=== PATIENT | female | born 1930 | race Caucasian/White ===

== ENCOUNTER 2016-06-03 07:25 | Emergency (ER) | payer OTHER, BC ==
[~2016-06-03] VITALS: Ht 170.2 cm; Wt 57.0 kg
[~2016-06-03 07:25] MED LIST: COEN1CAP46 PO; CPR250 PO; DORZ2SOL OPB; LPT10 PO; MULT-506 PO; NIAC1TAB59 PO; POLY99.02 OP; PRT40 PO
[2016-06-03 07:31] VITALS: TEMP 36.6; Ht 170.2 cm; Wt 57.0 kg
[2016-06-03] MEDS ORDERED: SODIUM CHLORIDE 0.9% 1000ML 500 ML IV STA (07:43)
[2016-06-03] MEDS ORDERED: DIPHTHERIA/TETANUS/PERTUSSIS 0.5 ML SYR/VIAL IM. ONE (07:45)
[2016-06-03] MEDS ORDERED: LIDO/EPINEPHRINE/SOD BICARB 20 ML VIAL INFIL ONE (07:45)
[2016-06-03] MEDS ORDERED: LISI-729 PO (07:49)
[2016-06-03] MEDS ORDERED: CITA10TA8 PO (07:49)
[2016-06-03] MEDS ORDERED: COEN1CAP37 PO (07:49)
[2016-06-03] MEDS ORDERED: ATOR10TA88 PO (07:49)
[2016-06-03] MEDS ORDERED: TRAV0.00 OPB (07:49)
[2016-06-03] MEDS ORDERED: POLY1DRO19 OPB (07:49)
[2016-06-03] MEDS ORDERED: MULT-513 PO (07:49)
[2016-06-03] MEDS ORDERED: PRLSR20 PO (07:49)
[2016-06-03] MEDS ORDERED: AMOX500C3 PO (07:49)
[2016-06-03] MEDS ORDERED: ACET325T96 PO (07:49)
[2016-06-03] MEDS ORDERED: MEMA1CAP7 PO (07:49)
--- NOTE | 2016-06-03 07:49 | EMERGENCY ROOM VISIT NOTE ---
History Report prepared by Tera: Maddie Andujar Under the Supervision of: Dr. Matt Musa M.D. First contact with patient: 07:33 Chief Complaint: FALL Stated Complaint: FALL/LACERATION History of Present Illness The patient is an 86 year old female who presents to the Emergency Room with complaints of a sudden fall that occurred prior to arrival. She states that she is in minimal discomfort. The patient states that this morning she turned, lost her balance, and then fell hitting her head causing a small laceration to her head. She denies any loss of consciousness or headache. The patient states that she did feel dizzy this morning and states that she intermittently becomes dizzy. She states that last weekend she felt nauseous, but denies any nausea this morning. The patient states that she thought there was a lump to the back of her neck since the fall, but states that she does not notice it now. Per the patient's son, the patient has recently been treated for vertigo. Tetanus status is unknown. Source of History: patient Onset: prior to arrival Position: other (global) Symptom Intensity: minimal Quality: other (fall) Timing: other (sudden) Associated Symptoms: No LOC, No headache, No nausea Note: Associated Symptoms: dizzy Review of Systems See HPI for pertinent positives & negatives. A total of 10 systems reviewed and were otherwise negative. Past Medical & Surgical Medical Problems: (1) Afib (2) Chronic osteoarthritis (3) GI bleed (4) Replacement of total knee joint Surgical Problems: (1) History of heart valve replacement Family History Patient reports no known family medical history. Social History Smoking Status: Never Smoker Alcohol Use: none Marital Status: Housing Status: lives alone Occupation Status: retired Current/Historical Medications Scheduled Atorvastatin (Lipitor), 10 MG PO Q2D Citalopram Hydrobromide (Celexa), 10 MG PO HS Coenzyme Q10 (Ubidecarenone) (Co Q-10), 200 MG PO DAILY Lisinopril (Zestril), 5 MG PO DAILY Memantine Hcl (Namenda Xr), 28 MG PO HS Multivitamins/Minerals (Mvi With Minerals), 1 TAB PO DAILY Omeprazole (Prilosec), 20 MG PO DAILY Travoprost (Travatan Z), 1 DROPS OPB HS Scheduled PRN Acetaminophen Tab (Tylenol), 650 MG PO Q4 PRN for PA Amoxicillin (Amoxil), 4 CAP PO Q24H PRN for DENTAL PROPHYLAXIS Polyethylene Glycol-Propylene (Lubricant Eye Drops), 1 DROP OPB Q1H PRN for DRY EYES Allergies Coded Allergies: Celecoxib (Verified Allergy, Severe, SWELLING LIPS, 06/03/16) Amoxicillin (Unverified Allergy, Intermediate, ., 06/03/16) Clavulanic Acid (Unverified Allergy, Intermediate, ., 06/03/16) Fexofenadine (Verified Allergy, Intermediate, STIFF TONGUE, 06/03/16) Valdecoxib (Verified Allergy, Mild, RASH, 06/03/16) Physical Exam Vital Signs Date Time Temp Pulse Resp B/P Pulse Ox O2 Delivery O2 Flow Rate FiO2 06/03/16 09:21 74 16 170/100 97 06/03/16 08:12 72 16 175/85 94 Room Air 06/03/16 07:31 36.6 82 16 181/92 95 Room Air 06/03/16 07:28 77 Physical Exam GENERAL: Patient is in no acute distress. HEENT: 1 cm vertical posterior scalp laceration with no active bleeding. No jaye stepoff, no hematoma. No facial trauma. Mucous membranes slightly dry. NECK: No posterior c-spine tenderness. No stridor, no adenopathy, no meningismus, trachea is midline. LUNGS: Decreased breath sounds, breath sounds are equal, no wheezes or rhonchi. HEART: 2/6 systolic murmur with a regular rate and rhythm. ABDOMEN: Soft, nontender, bowel sounds positive, no hernias, no peritonitis. BACK: Nontender thoracic and lumbar spine. EXTREMITIES: No cyanosis or edema, full range of motion of all the joints without pain or difficulty, no signs for acute trauma. NEUROLOGIC: Oriented x 3, no acute motor or sensory deficits, no focal weakness. SKIN: No rash, no jaundice, no diaphoresis. Medical Decision & Procedures ER Provider Diagnostic Interpretation: X ray results and stated below per my interpretation and radiologist interpretation. Other radiology results and stated below per my review and radiologist interpretation: HEAD CT NONCONTRAST CT DOSE: HISTORY: Fall. Head laceration. EVALUATE ALTERED MENTAL STATUS/WEAKNESS TECHNIQUE: Multiaxial CT images of the head were performed without the use of intravenous contrast. Automated exposure control was utilized for this study. Comparison: Head CT 01/23/2015. Findings: The paranasal sinuses and mastoid air cells are clear. There is a stable 14 mm extra-axial calcified mass along the right side of the foramen magnum. This likely represents a meningioma. There is no hematoma, midline shift, acute infarct. Atrophy and microvascular ischemic changes are again noted. This remains unchanged. Impression: No significant change compared to the prior study. No acute intracranial abnormality. Electronically signed by: Donaldo Leonard M.D. 06/03/2016 8:15 AM Dictated Date/Time: 06/03/2016 8:10 AM CHEST ONE VIEW PORTABLE HISTORY: EVALUATE ALTERED MENTAL STATUS/WEAKNESS COMPARISON: None. FINDINGS: Levoscoliosis of the lumbar spine. The heart remains enlarged. Retrocardiac density is consistent with a hiatus hernia. No pneumothorax. No pleural effusions. Mild interstitial thickening which appears to be chronic. Bibasilar linear densities consistent with subsegmental atelectasis. No new focal lung consolidations. Severe degenerative changes within the bilateral glenohumeral joints. There are poststernotomy changes. IMPRESSION: No significant change compared to the prior study. No acute process. Electronically signed by: Donaldo Leonard M.D. 06/03/2016 8:25 AM Dictated Date/Time: 06/03/2016 8:[address] DOSE: 1022.84 mGy.cm HISTORY: Neck pain. fall TECHNIQUE: Multiaxial CT images of the cervical spine were performed and reformatted in the sagittal and coronal plane without the use of contrast. COMPARISON: None. FINDINGS: Slight depression involving the superior endplate of T1 which is new from the prior study. However, this demonstrates slight sclerosis. There is no paravertebral soft tissue edema. Therefore, this is consistent with an old mild compression deformity. This demonstrates less than 10% loss of height. No acute fracture or subluxation within the cervical spine. Severe disc space narrowing at C5-C6, C6-C7, and C7-T1 with associated endplate osteophytes. The C1-C2 interval and prevertebral soft tissues are intact. The lung apices are clear. IMPRESSION: 1. No acute fracture or subluxation within the cervical spine. 2. Mild superior endplate compression deformity at T1 which is likely old. Electronically signed by: Doanldo Leonard M.D. 06/03/2016 8:23 AM Dictated Date/Time: 06/03/2016 8:16 AM Laboratory Results 06/03/16 07:35 Red Blood Count 4.16, Mean Corpuscular Volume 100.2, Mean Corpuscular Hemoglobin 33.4, Mean Corpuscular Hemoglobin Concent 33.3, Mean Platelet Volume 10.0, Neutrophils (%) (Auto) 56.8, Lymphocytes (%) (Auto) 29.5, Monocytes (%) ( Auto) 7.8, Eosinophils (%) (Auto) 5.1, Basophils (%) (Auto) 0.4, Neutrophils # ( Auto) 3.93, Lymphocytes # (Auto) 2.04, Monocytes # (Auto) 0.54, Eosinophils # ( Auto) 0.35, Basophils # (Auto) 0.03 06/03/16 07:35 Test 06/03/16 07:35 White Blood Count 6.92 K/uL (4.8-10.8) Red Blood Count 4.16 M/uL (4.2-5.4) Hemoglobin 13.9 g/dL (12.0-16.0) Hematocrit 41.7 % (37-47) Mean Corpuscular Volume 100.2 fL (80-100) Mean Corpuscular Hemoglobin 33.4 pg (25-34) Mean Corpuscular Hemoglobin Concent 33.3 g/dl (32-36) Platelet Count 158 K/uL (130-400) Mean Platelet Volume 10.0 fL (7.4-10.4) Neutrophils (%) (Auto) 56.8 % Lymphocytes (%) (Auto) 29.5 % Monocytes (%) (Auto) 7.8 % Eosinophils (%) (Auto) 5.1 % Basophils (%) (Auto) 0.4 % Neutrophils # (Auto) 3.93 K/uL (1.4-6.5) Lymphocytes # (Auto) 2.04 K/uL (1.2-3.4) Monocytes # (Auto) 0.54 K/uL (0.11-0.59) Eosinophils # (Auto) 0.35 K/uL (0-0.5) Basophils # (Auto) 0.03 K/uL (0-0.2) RDW Standard Deviation 48.4 fL (36.4-46.3) RDW Coefficient of Variation 13.2 % (11.5-14.5) Immature Granulocyte % (Auto) 0.4 % Immature Granulocyte # (Auto) 0.03 K/uL (0.00-0.02) Anion Gap 4.0 mmol/L (3-11) Est Creatinine Clear Calc Drug Dose 47.4 ml/min Estimated GFR () 80.3 Estimated GFR (Non- 69.3 BUN/Creatinine Ratio 14.7 (10-20) Calcium Level 9.2 mg/dl (8.5-10.1) Total Bilirubin 0.7 mg/dl (0.2-1) Aspartate Amino Transf (AST/SGOT) 33 U/L (15-37) Alanine Aminotransferase (ALT/SGPT) 29 U/L (12-78) Alkaline Phosphatase 104 U/L (45-117) Total Protein 6.8 gm/dl (6.4-8.2) Albumin 3.4 gm/dl (3.4-5.0) Globulin 3.4 gm/dl (2.5-4.0) Albumin/Globulin Ratio 1.0 (0.9-2) Thyroid Stimulating Hormone (TSH) 3.600 uIu/ml (0.300-4.500) Laboratory results reviewed by me. The patient's urine dip is negative for infection or blood. Medications Administered Medications (Trade) Dose Ordered Sig/Cal Route Start Time Stop Time Status Last Admin Dose Admin Sodium Chloride (Nss 1000ml) 500 ml @ 999 mls/hr Q31M STAT IV 06/03/16 07:43 06/03/16 08:13 DC 06/03/16 07:43 999 MLS/HR Diphtheria/ Pertussis/Tetanus Vacc (Adacel Inj) 0.5 ml ONCE ONCE IM. 06/03/16 07:45 06/03/16 07:46 DC 06/03/16 07:50 0.5 ML Procedure Location: Scalp Total length: 1 cm Complexity: Simple Verbal consent was obtained after the risks and benefits were explained, including but not limited to bleeding, scarring, infection, pain, and bone/ nerve damage. At this time, the risks of the procedure are less than the risks of NOT performing the procedure. A time out was taken and the correct patient and site identified. The scalp was prepped with betadine. The target area was anesthetized with 2 ml of 1% lidocaine with epinephrine. Copious irrigation was performed using saline. The skin was re-prepped with betadine, the hair cleared from the wound, and a sterile field set. The wound was explored for foreign bodies and none found. Debridement was not performed. The wound edges were approximated using 3 surgical alex in the standard fashion. Hemostasis and excellent approximation was achieved. Antibacterial ointment and a sterile dressing applied. Detailed wound care instructions and signs and symptoms of infection reviewed with the patient. No complications and the patient tolerated the procedure well. ECG Indication: other (dizzy) Rate (beats per minute): 76 Rhythm: sinus rhythm Findings: PVC, no acute ischemic change, other (old septal infarct) ED Course 0739: The patient was evaluated in room A10. A complete history and physical exam was performed. 0743: Ordered Sodium Chloride 500 ml @ 999 mls/hr IV. 0745: Ordered Lidocaine/Epinephrine 20 ml INFIL, Adacel Inj 0.5 ml IM. 0853: I reevaluated the patient and she is doing well. I performed the laceration repair at this time. See procedure note for further detail. I discussed all the exam findings with her at this time and I discussed the treatment plan. She verbalized complete understanding and agreement. She is ready to go home. Medical Decision The patient is an 86 year old female who presents to the ED with complaints of a fall. Differential diagnoses considered include intracranial bleed, skull fracture, c-spine fracture, dehydration, anemia, electrolyte imbalance, dysrhythmia, UTI, mechanical fall. There is no leukocytosis or concerning anemia. No significant electrolyte abnormality, kidney failure or hepatitis. Urine dip does not suggest infection. EKG shows a sinus rhythm with some older changes, no acute ischemia. Brain CT shows no acute bleed or mass effect. C-spine CT shows no acute fracture. Chest x-ray does not show pneumonia or CHF. The patient presents after what sounds like a mechanical fall. Her workup is benign. She received IV saline, her laceration was repaired with alex. The patient is being discharged home. Impression Primary Impression: Scalp laceration Additional Impression: Fall Scribe Attestation The scribe's documentation has been prepared under my direction and personally reviewed by me in its entirety. I confirm that the note above accurately reflects all work, treatment, procedures, and medical decision making performed by me. Departure Information Dispostion Home / Self-Care Referrals (PCP) Forms HOME CARE DOCUMENTATION FORM, IMPORTANT VISIT INFORMATION [facility] Instructions [facility] Additional Instructions alex out in 10 days watch for infection--redness, drainage, fever lab testing and imaging today was all ok return if worsening Problem Qualifiers
[2016-06-03 07:54] LABS: BASO % 0.4 %; BASO ABS # 0.03 K/uL (0-0.2); COMPLETE YES; EOS % 5.1 %; HEMATOCRIT 41.7 % (37-47); IG% 0.4 %; LYMPH % 29.5 %; LYMPH ABS # 2.04 K/uL (1.2-3.4); MEAN CELL VOLUME 100.2 fL (80-100); MEAN CORPUSCULAR HEMOGLOBIN 33.4 pg (25-34); MEAN CORPUSCULAR HGB CONC 33.3 g/dl (32-36); MONO % 7.8 %; NEUT % 56.8 %; PLATELET COUNT 158 K/uL (130-400); RED BLOOD COUNT 4.16 M/uL (4.2-5.4); WHITE BLOOD COUNT 6.92 K/uL (4.8-10.8)
[2016-06-03 08:00] LABS: BUN/CREATININE RATIO 14.7 (10-20); CALCIUM 9.2 mg/dl (8.5-10.1); CREATININE 0.78 mg/dl (0.60-1.20)
[2016-06-03 08:11] LABS: THYROID STIMULATING HORMONE 3.6 uIu/ml (0.300-4.500)
--- NOTE | 2016-06-03 08:17 | DIAGNOSTIC IMAGING REPORT ---
HEAD CT NONCONTRAST CT DOSE: HISTORY: Fall. Head laceration. EVALUATE ALTERED MENTAL STATUS/WEAKNESS TECHNIQUE: Multiaxial CT images of the head were performed without the use of intravenous contrast. Automated exposure control was utilized for this study. Comparison: Head CT 01/23/2015. Findings: The paranasal sinuses and mastoid air cells are clear. There is a stable 14 mm extra-axial calcified mass along the right side of the foramen magnum. This likely represents a meningioma. There is no hematoma, midline shift, acute infarct. Atrophy and microvascular ischemic changes are again noted. This remains unchanged. Impression: No significant change compared to the prior study. No acute intracranial abnormality. Electronically signed by: Donaldo Leonard M.D. 06/03/2016 8:15 AM Dictated Date/Time: 06/03/2016 8:10 AM
--- NOTE | 2016-06-03 08:24 | DIAGNOSTIC IMAGING REPORT ---
CERVICAL SPINE CT CT DOSE: 1022.84 mGy.cm HISTORY: Neck pain. fall TECHNIQUE: Multiaxial CT images of the cervical spine were performed and reformatted in the sagittal and coronal plane without the use of contrast. COMPARISON: None. FINDINGS: Slight depression involving the superior endplate of T1 which is new from the prior study. However, this demonstrates slight sclerosis. There is no paravertebral soft tissue edema. Therefore, this is consistent with an old mild compression deformity. This demonstrates less than 10% loss of height. No acute fracture or subluxation within the cervical spine. Severe disc space narrowing at C5-C6, C6-C7, and C7-T1 with associated endplate osteophytes. The C1-C2 interval and prevertebral soft tissues are intact. The lung apices are clear. IMPRESSION: 1. No acute fracture or subluxation within the cervical spine. 2. Mild superior endplate compression deformity at T1 which is likely old. Electronically signed by: Donaldo Leonard M.D. 06/03/2016 8:23 AM Dictated Date/Time: 06/03/2016 8:16 AM
--- NOTE | 2016-06-03 08:26 | DIAGNOSTIC IMAGING REPORT ---
CHEST ONE VIEW PORTABLE HISTORY: EVALUATE ALTERED MENTAL STATUS/WEAKNESS COMPARISON: None. FINDINGS: Levoscoliosis of the lumbar spine. The heart remains enlarged. Retrocardiac density is consistent with a hiatus hernia. No pneumothorax. No pleural effusions. Mild interstitial thickening which appears to be chronic. Bibasilar linear densities consistent with subsegmental atelectasis. No new focal lung consolidations. Severe degenerative changes within the bilateral glenohumeral joints. There are poststernotomy changes. IMPRESSION: No significant change compared to the prior study. No acute process. Electronically signed by: Donaldo Leonard M.D. 06/03/2016 8:25 AM Dictated Date/Time: 06/03/2016 8:23 AM
[2016-06-03 09:21] VITALS: BP 170/100; PULSE 74; O2SAT 97
== END 2016-06-03 09:25 | disposition home or self-care (01) ==
LOC: EDBD 07:25 → C.EDA 07:27
DX: S01.01XA Laceration without foreign body of scalp, initial encounter (principal); W19.XXXA Unspecified fall, initial encounter; I48.91 Unspecified atrial fibrillation; M19.90 Unspecified osteoarthritis, unspecified site; Z95.2 Presence of prosthetic heart valve; Z96.659 Presence of unspecified artificial knee joint; Z79.899 Other long term (current) drug therapy

== ENCOUNTER 2018-06-12 01:22 | Inpatient (IN) ==
[2018-06-12] MEDS ORDERED: HYDROmorphone INJ 0.5 MG/0.5 ML SYR IV PRN (01:40)
[2018-06-12 01:58] LABS: Basophils # (auto) 0.03 K/uL (0-0.2); Basophils % (auto) 0.2 %; Eosinophils # (auto) 0.01 K/uL (0-0.5); Eosinophils % (auto) 0.1 %; Hematocrit (blood only) 36.3 % (37-47); Hemoglobin 11.7 g/dL (12.0-16.0); Immature Granulocytes # (auto) 0.05 K/uL (0.00-0.02); Immature Granulocytes % (auto) 0.3 %; Lymphocytes # (auto) 0.84 K/uL (1.2-3.4); Lymphocytes % (auto) 5.3 %; Mean Corpuscular Hgb Conc 32.2 g/dL (32-36); Mean Corpuscular Volume 102.3 fL (80-100); Mean Platelet Volume 10.5 fL (7.4-10.4); Monocytes # (auto) 0.87 K/uL (0.11-0.59); Monocytes % (auto) 5.5 %; Neutrophils # (auto) 14.08 K/uL (1.4-6.5); Neutrophils % (auto) 88.6 %; Platelet Count 181 K/uL (130-400); RDW Coefficient of Variation 14.6 % (11.5-14.5); RDW Standard Deviation 54.7 fL (36.4-46.3); Red Blood Count 3.55 M/uL (4.2-5.4); White Blood Count 15.88 K/uL (4.8-10.8)
[2018-06-12 02:10] LABS: INR 1.1 (0.9-1.1); Partial Thromboplastin Ratio 0.8; Partial Thromboplastin Time 22.9 Seconds (21.0-31.0); Prothrombin Time 10.9 Seconds (9.0-12.0)
[2018-06-12 02:12] LABS: Appearance Urine Cloudy (Clear); Bacteria Urine Automated 4+ (Negative); Bilirubin Urine Negative (Negative); Blood Urine Negative (Negative); Color Urine Yellow; Glucose Urine UA Negative (Negative); Ketones Urine 1+ (Negative); Leukocyte Esterase Urine Trace (Negative); Nitrite Urine Positive (Negative); Protein Urine Negative (Negative); RBC Urine Automated 0-4 /hpf (0-4); Specific Gravity Urine 1.026 (1.000-1.030); Urobilinogen Urine Negative (Negative); pH Urine 5.5 (4.5-7.5)
[2018-06-12 02:17] LABS: BUN Creatinine Ratio 32.6 (10-20); Blood Urea Nitrogen 27 mg/dl (7-18); Calcium 8.9 mg/dl (8.5-10.1); Carbon Dioxide 25 mmol/L (21-32); Chloride 106 mmol/L (98-107); Est GFR (African American) 73.5; Est GFR (Non-African American) 63.4; Glucose 137 mg/dl (70-99); Potassium 4.2 mmol/L (3.5-5.1); Sodium 141 mmol/L (136-145)
[2018-06-12] MEDS ORDERED: ONDANSETRON INJ 2 MG/ML 2 ML VIAL IV STA (02:27)
--- NOTE | 2018-06-12 04:13 | History & Physical Report ---
Date of Service June 12, 2018 Assessment & Plan (1) Closed left femoral fracture: Ms. Gambino is a 88 year old female with a history of Alzheimer's dementia, hypertension, hx of esophagitis, aortic stenosis s/p bioprosthetic AVR and Paroxysmal Afib who presents to the ED after a fall that occurred earlier today. ED Course: 4mg IV zofran, 0.25mg IV Dilaudid -admit to med/surg -CT pelvis showed acute comminuted, displaced intertrochanteric fracture of the left femur with varus angulation -orthopedics consult -PT/OT consult -NPO -1g IV Tylenol q8h prn pain Urinary Tract Infection -UA positive for nitrites, leuk esterase, WBC and bacteria -urine culture pending -patient unable to tell us if symptomatic -will treat given pt also has elevated WCC, and may be related to pt's fall -1g IV Rocephin q24h, no prior urine cx available to assess sensitivities EKG Changes -pt has new T wave inversions in lateral leads, T wave abnormalities in inferior leads -will re-order EKG given presence of PVCs on first one as well as troponin level Dementia -continue memantine and citalopram Hypercholesterolemia -continue atorvastatin HTN -continue lisinopril History of esophagitis -change omeprazole to pantoprazole Paroxysmal Afib -appears to have only been one episode in Apr 2015 and she has not been in afib since -currently in sinus rhythm Code status: FULL. Unable to have discussion w/patient regarding this given dementia. Pt has son listed as POA, recommend revisiting this conversation during the daytime. Disposition: admit to med/surg DVT Prophylaxis: SCDs F/E/N: NPO. No electrolyte abnormalities noted. No IVF ordered (2) Dementia: (3) Hypertension: (4) Afib: (5) Hypercholesterolemia: History of Present Illness Primary Care Provider: Mohan [facility] Ms. Gambino is a 88 year old female with a history of Alzheimer's dementia, hypertension, hx of esophagitis, aortic stenosis s/p bioprosthetic AVR and Paroxysmal Afib who presents to the ED after a fall that occurred earlier today. History is limited secondary to patient's dementia, however upon review of the notes from Mohan Harris, the patient was found to be sliding off her bed. She subsequently complained of pain in her left hip and left leg and would not raise her left leg. An x-ray was obtained and showed a fracture in her left femur. Of note, the patient was recently discharged from [facility] on 03/04/2018 after having sustained a pelvic fracture after a fall. The patient denies any pain at the time of my examination. She had just received 0.25mg of IV Dilaudid and subsequently dropped her oxygen saturations to 89%. She was placed on 2L of oxygen via nasal cannula and is now saturating at 100%. Allergies Allergy/AdvReac Type Severity Reaction Status Date / Time celecoxib Allergy Severe SWELLING Verified 06/12/18 01:48 LIPS amoxicillin Allergy Intermediate . Unverified 06/12/18 01:48 clavulanic acid Allergy Intermediate . Unverified 06/12/18 01:48 fexofenadine Allergy Intermediate STIFF Verified 06/12/18 01:48 TONGUE valdecoxib Allergy Mild RASH Verified 06/12/18 01:48 Home Medications Home Medications Medication Instructions Recorded Confirmed Type Travatan Z 1 drp OPHTHALMIC (EYE) PM 02/27/18 06/12/18 History acetaminophen 650 mg PO TID PRN 02/27/18 06/12/18 History citalopram 10 mg PO DAILY 02/27/18 06/12/18 History diclofenac sodium [Voltaren] 2 g TOPICAL QID 02/27/18 06/12/18 History lisinopril 5 mg PO DAILY 02/27/18 06/12/18 History memantine [Namenda XR] 1 cap PO DAILY 02/27/18 06/12/18 History omeprazole 20 mg PO DAILY 02/27/18 06/12/18 History ergocalciferol (vitamin D2) 50,000 units PO DAILY #30 cap 03/04/18 06/12/18 Rx acetaminophen [Tylenol] 650 mg PO Q6H PRN 06/12/18 06/12/18 History artificial tears(hypromellose) 2 drp OPHTHALMIC (EYE) Q2H PRN 06/12/18 06/12/18 History atorvastatin 10 mg PO HS 06/12/18 06/12/18 History calcium carbonate [Calcium 600] 600 mg PO TID 06/12/18 06/12/18 History cholecalciferol (vitamin D3) 2,000 unit PO DAILY 06/12/18 06/12/18 History [Vitamin D3] Past Med/Surg History Medical History Traumatic hematoma of left elbow DVT prophylaxis Dementia BPPV (benign paroxysmal positional vertigo) Hypertension Fracture of left pelvis (Acute) Afib Cervical strain (Acute) Contusion of left leg (Acute) Facial contusion (Acute) Fall (Acute) GI bleed Head injury (Acute) Surgical History History of heart valve replacement (Chronic) Family History Other Family history non-contributory Social History Communication Ability: Effective Beliefs That Will Affect Care: None marital status: Unknown Current Living Situation: Personal Care Facility Current Living Situation Comment: [facility] current occupational status: retired Other Information That Helps Us Care for You: No Feels Safe at Home: Yes Safety Concerns: Feels Safe At This Time Smoking Status: Never smoker Hx Alcohol Use: No Hx Substance Use: No Review of Systems Unobtainable due to patient's dementia Physical Exam Vital Signs (Past 24 Hours): Last Vital Signs Temp 36.9 C 06/12/18 01:23 Pulse 81 06/12/18 04:02 Resp 20 06/12/18 04:02 BP 186/83 H 06/12/18 04:02 Pulse Ox 100 06/12/18 04:02 Constitutional: well developed, well nourished, + frail appearing and comfortable; no acute distress Respiratory: normal respiratory effort, lungs clear to auscultation Cardiovascular: Rate/Rhythm: regular rate and regular rhythm Heart Sounds: + murmur (systolic murmur heard throughout valvular areas, loudest at LSB. ) Chest (Breasts): Additional Comments: ecchymoses noted to right side of chest Gastrointestinal (Abdomen): Inspection/Auscultation: abdomen normal to inspection Percussion/Palpation: abdomen soft; abdomen nontender, no guarding and abdomen not rigid Musculoskeletal: left leg shortened and externally rotated Skin: no rashes, warm and dry Psychiatric: Orientation: alert and oriented to person; + not oriented to place and + not oriented to time Results & Data Laboratory Results Laboratory Results - last 24 hr 06/12/18 06/12/18 06/12/18 01:52 01:52 01:52 WBC 15.88 H RBC 3.55 L Hgb 11.7 L Hct 36.3 L MCV 102.3 H MCH 33.0 MCHC 32.2 RDW Std Deviation 54.7 H RDW Coeff of June 14.6 H Plt Count 181 MPV 10.5 H Immature Gran % (Auto) 0.3 Neut % (Auto) 88.6 Lymph % (Auto) 5.3 [place] % (Auto) 5.5 Eos % (Auto) 0.1 Baso % (Auto) 0.2 Immature Gran # (Auto) 0.05 H Neut # (Auto) 14.08 H Lymph # (Auto) 0.84 L [place] # (Auto) 0.87 H Eos # (Auto) 0.01 Baso # (Auto) 0.03 PT 10.9 INR 1.1 APTT 22.9 PTT Ratio 0.8 Sodium 141 Potassium 4.2 Chloride 106 Carbon Dioxide 25 Anion Gap 10.0 BUN 27 H Creatinine 0.83 Est Cr Clr Drug Dosing Not Reportable Est GFR ( Amer) 73.5 Est GFR (Non-Af Amer) 63.4 BUN/Creatinine Ratio 32.6 H Glucose 137 H Calcium 8.9 Urine Color Urine Appearance Urine pH Ur Specific [place] Urine Protein Urine Glucose (UA) Urine Ketones Urine Blood Urine Nitrite Urine Bilirubin Urine Urobilinogen Ur Leukocyte Esterase Urine WBC (Auto) Urine RBC (Auto) U Hyaline Cast (Auto) U Epithel Cells (Auto) Urine Bacteria (Auto) Urine Yeast Blood Type Antibody Screen 06/12/18 06/12/18 01:52 02:00 WBC RBC Hgb Hct MCV MCH MCHC RDW Std Deviation RDW Coeff of June Plt Count MPV Immature Gran % (Auto) Neut % (Auto) Lymph % (Auto) [place] % (Auto) Eos % (Auto) Baso % (Auto) Immature Gran # (Auto) Neut # (Auto) Lymph # (Auto) [place] # (Auto) Eos # (Auto) Baso # (Auto) PT INR APTT PTT Ratio Sodium Potassium Chloride Carbon Dioxide Anion Gap BUN Creatinine Est Cr Clr Drug Dosing Est GFR ( Amer) Est GFR (Non-Af Amer) BUN/Creatinine Ratio Glucose Calcium Urine Color Yellow Urine Appearance Cloudy H Urine pH 5.5 Ur Specific [place] 1.026 Urine Protein Negative Urine Glucose (UA) Negative Urine Ketones 1+ H Urine Blood Negative Urine Nitrite Positive H Urine Bilirubin Negative Urine Urobilinogen Negative Ur Leukocyte Esterase Trace H Urine WBC (Auto) 10-30 H Urine RBC (Auto) 0-4 U Hyaline Cast (Auto) 1-5 U Epithel Cells (Auto) 10-20 H Urine Bacteria (Auto) 4+ H Urine Yeast Not Reportable Blood Type Cancelled Antibody Screen Cancelled Supervising Physician Co-Signing Physician Notes Attending addendum: I have physically seen this patient, have supervised the medical residents activities, and agree with the H&P unless as otherwise noted. Assessment and Plan: Closed acute left comminuted, displaced intertrochanteric fracture of the left femur with varus angulation-- Admit to [facility]. NPO Consult orthopedics Acetaminophen 1 g IV every 8 hours as needed mild pain or temperature. Dilaudid 0.25 mg IV every 3 hours as needed severe pain. UTI-- Empiric treatment with ceftriaxone 1 g IV every 24 hours. Follow urine culture and sensitivity. Remainder of orders and notations as noted. Resident Activity Tracking Resident Involvement: Resident Care Provided Care Provided: Adult Hospital Medicine
--- NOTE | 2018-06-12 04:30 | Emergency Department Note ---
Entered by Ameya Cason acting as a scribe for Pedro Schroeder MD History of Present Illness General Chief complaint: Fall Time Seen by Provider: 06/12/18 01:27 Source: patient History of Present Illness Provider complaint: Fall Onset (ago): hour(s) (Just prior to arrival) Location: hip and left Severity: similar to prior episodes Pain Consistency: + other (Episodic) Maximum Pain Intensity: 5 Associated symptoms: + other (Abdominal pain) The patient is an 88 year old female who presents to the Emergency Room from [facility] with left hip pain after a fall just prior to arrival. The patient had an Xray done at her facility that showed a fracture in the left hip. She also complains of some abdominal pain. HPI is limited secondary to altered mental status. Home Medications Home Medications Medication Instructions Recorded Confirmed Type Travatan Z 1 drp OPHTHALMIC (EYE) PM 02/27/18 06/12/18 History acetaminophen 650 mg PO TID PRN 02/27/18 06/12/18 History citalopram 10 mg PO DAILY 02/27/18 06/12/18 History diclofenac sodium [Voltaren] 2 g TOPICAL QID 02/27/18 06/12/18 History lisinopril 5 mg PO DAILY 02/27/18 06/12/18 History memantine [Namenda XR] 1 cap PO DAILY 02/27/18 06/12/18 History omeprazole 20 mg PO DAILY 02/27/18 06/12/18 History ergocalciferol (vitamin D2) 50,000 units PO DAILY #30 cap 03/04/18 06/12/18 Rx acetaminophen [Tylenol] 650 mg PO Q6H PRN 06/12/18 06/12/18 History artificial tears(hypromellose) 2 drp OPHTHALMIC (EYE) Q2H PRN 06/12/18 06/12/18 History atorvastatin 10 mg PO HS 06/12/18 06/12/18 History calcium carbonate [Calcium 600] 600 mg PO TID 06/12/18 06/12/18 History cholecalciferol (vitamin D3) 2,000 unit PO DAILY 06/12/18 06/12/18 History [Vitamin D3] Allergies Allergy/AdvReac Type Severity Reaction Status Date / Time celecoxib Allergy Severe SWELLING Verified 06/12/18 01:48 LIPS amoxicillin Allergy Intermediate . Unverified 06/12/18 01:48 clavulanic acid Allergy Intermediate . Unverified 06/12/18 01:48 fexofenadine Allergy Intermediate STIFF Verified 06/12/18 01:48 TONGUE valdecoxib Allergy Mild RASH Verified 06/12/18 01:48 Past Med/Surg History Medical History Traumatic hematoma of left elbow DVT prophylaxis Dementia BPPV (benign paroxysmal positional vertigo) Hypertension Fracture of left pelvis (Acute) Afib Cervical strain (Acute) Contusion of left leg (Acute) Facial contusion (Acute) Fall (Acute) GI bleed Head injury (Acute) Surgical History History of heart valve replacement (Chronic) Family History Other Family history non-contributory Social History Preferred Language: Lithuanian Beliefs That Will Affect Care: None Current Living Situation: Personal Care Facility Current Living Situation Comment: [facility] current occupational status: retired Feels Safe at Home: Yes Smoking Status: Unknown if ever smoked Hx Alcohol Use: No Hx Substance Use: No Review of Systems See HPI for pertinent positives & negatives. Unobtainable due to cognitive status Physical Exam Vital Signs Vital Signs - 24 hr 06/12/18 01:23 06/12/18 02:00 06/12/18 02:04 Temperature 36.9 C Temperature Source Oral Sepsis Recent Fever Within 48 Hours No Sepsis New/Unexplained Change in Mental Status No Sepsis Action Taken by Nursing No Action Required Pulse Rate 83 Pulse Rate [Apical] 85 Respiratory Rate 23 24 Respiratory Depth Normal Blood Pressure 177/126 H Blood Pressure [Left Arm] 193/111 H Blood Pressure Mean 143 Blood Pressure Mean [Left Arm] 138 Pulse Oximetry 92 94 92 Oxygen Delivery Method Room Air Room Air Room Air Oxygen Flow Rate 06/12/18 03:00 06/12/18 03:01 06/12/18 04:02 Temperature Temperature Source Sepsis Recent Fever Within 48 Hours Sepsis New/Unexplained Change in Mental Status Sepsis Action Taken by Nursing Pulse Rate Pulse Rate [Apical] 85 81 Respiratory Rate 20 20 Respiratory Depth Normal Blood Pressure Blood Pressure [Left Arm] 173/94 H 186/83 H Blood Pressure Mean Blood Pressure Mean [Left Arm] 120 117 Pulse Oximetry 89 L 96 100 Oxygen Delivery Method Room Air Nasal Cannula Nasal Cannula Oxygen Flow Rate 2 2 GENERAL: Awake, alert, well-appearing, in no distress HENT: Normocephalic, atraumatic. Oropharynx unremarkable. EYES: Normal conjunctiva. Sclera non-icteric. NECK: Supple. No nuchal rigidity. FROM. No masses. RESPIRATORY: Clear to auscultation. No wheezes. No rales. Normal respiratory effort. CARDIAC: Normal rate. Normal rhythm. No murmurs. No rubs. Extremities warm and well perfused. Pulses equal. No JVD. GI: Soft, non-distended. No tenderness to palpation. No rebound or guarding. No masses. RECTAL: Deferred. MUSCULOSKELETAL: Atraumatic. Chest examination reveals no tenderness. The back is symmetrical on inspection without obvious abnormality. There is no CVA tenderness to palpation. No joint edema. LOWER EXTREMITIES: Calves are equal size bilaterally and non-tender. No edema. No discoloration. Left leg is shortened and rotated externally. NEURO: Confused and cannot answer questions appropriately. No sensory or motor deficits noted. Course 0138: Past medical records reviewed. The patient was evaluated in room C07, and a complete history and physical examination were performed. 0245: I spoke to the patient's son so update him on the situation. He agrees with the plan to admit her to medicine and talk to ortho tomorrow. He is also aware that she is probably not a surgical candidate. 0305: I spoke to Dr. Spangler [facility] Hospitalist about the patient's case and he is going to accept her for further evaluation. Consultations Consultation #1: I spoke to Dr. Spangler [facility] Hospitalist about the patient's case and he is going to accept her for further evaluation. Time: 03:05 Administered Medications Hydromorphone HCl (Dilaudid) 0.25 mg IV Q20M PRN PRN Reason: Moderate Pain (Rating 3,4,5,6) Stop: 06/26/18 01:39 Last Admin: 06/12/18 02:51 Dose: 0.25 mg Documented by: [id number] Discontinued Medications Ondansetron HCl (Zofran) 4 mg IV NOW STA Stop: 06/12/18 02:28 Last Admin: 06/12/18 02:51 Dose: 4 mg Documented by: [id number] Medical Decision Making Differential Diagnosis Differential: Fracture, Dislocation, Cellulitis, Septic Joint, Ligamentous Injury, Effusion, DVT, amongst other pathologies entertained. Medical Records Attestation: I reviewed the patient's medical records. Home Medications Current Medication List: was personally reviewed by me Laboratory Data Attestation: I reviewed the patient's lab results. Result diagrams: 06/12/18 01:52 06/12/18 01:52 Lab Results 06/12/18 06/12/18 06/12/18 Range/Units 01:52 01:52 01:52 WBC 15.88 H (4.8-10.8) K/uL RBC 3.55 L (4.2-5.4) M/uL Hgb 11.7 L (12.0-16.0) g/dL Hct 36.3 L (37-47) % MCV 102.3 H (80-100) fL MCH 33.0 (25-34) pg MCHC 32.2 (32-36) g/dL RDW Std Deviation 54.7 H (36.4-46.3) fL RDW Coeff of June 14.6 H (11.5-14.5) % Plt Count 181 (130-400) K/uL MPV 10.5 H (7.4-10.4) fL Immature Gran % (Auto) 0.3 % Neut % (Auto) 88.6 % Lymph % (Auto) 5.3 % Schuyler % (Auto) 5.5 % Eos % (Auto) 0.1 % Baso % (Auto) 0.2 % Immature Gran # (Auto) 0.05 H (0.00-0.02) K/uL Neut # (Auto) 14.08 H (1.4-6.5) K/uL Lymph # (Auto) 0.84 L (1.2-3.4) K/uL Schuyler # (Auto) 0.87 H (0.11-0.59) K/uL Eos # (Auto) 0.01 (0-0.5) K/uL Baso # (Auto) 0.03 (0-0.2) K/uL PT 10.9 (9.0-12.0) Seconds INR 1.1 (0.9-1.1) APTT 22.9 (21.0-31.0) Seconds PTT Ratio 0.8 Sodium 141 (136-145) mmol/L Potassium 4.2 (3.5-5.1) mmol/L Chloride 106 (98-107) mmol/L Carbon Dioxide 25 (21-32) mmol/L Anion Gap 10.0 (3-11) BUN 27 H (7-18) mg/dl Creatinine 0.83 (0.6-1.2) mg/dl Est Cr Clr Drug Dosing Not Reportable Est GFR ( Amer) 73.5 Est GFR (Non-Af Amer) 63.4 BUN/Creatinine Ratio 32.6 H (10-20) Glucose 137 H (70-99) mg/dl Calcium 8.9 (8.5-10.1) mg/dl Urine Color Urine Appearance (Clear) Urine pH (4.5-7.5) Ur Specific [place] (1.000-1.030) Urine Protein (Negative) Urine Glucose (UA) (Negative) Urine Ketones (Negative) Urine Blood (Negative) Urine Nitrite (Negative) Urine Bilirubin (Negative) Urine Urobilinogen (Negative) Ur Leukocyte Esterase (Negative) Urine WBC (Auto) (0-5) /hpf Urine RBC (Auto) (0-4) /hpf U Hyaline Cast (Auto) (0-5) /lpf U Epithel Cells (Auto) (0-5) /lpf Urine Bacteria (Auto) (Negative) Urine Yeast Blood Type Antibody Screen 06/12/18 06/12/18 06/12/18 Range/Units 01:52 02:00 02:42 WBC (4.8-10.8) K/uL RBC (4.2-5.4) M/uL Hgb (12.0-16.0) g/dL Hct (37-47) % MCV (80-100) fL MCH (25-34) pg MCHC (32-36) g/dL RDW Std Deviation (36.4-46.3) fL RDW Coeff of June (11.5-14.5) % Plt Count (130-400) K/uL MPV (7.4-10.4) fL Immature Gran % (Auto) % Neut % (Auto) % Lymph % (Auto) % Schuyler % (Auto) % Eos % (Auto) % Baso % (Auto) % Immature Gran # (Auto) (0.00-0.02) K/uL Neut # (Auto) (1.4-6.5) K/uL Lymph # (Auto) (1.2-3.4) K/uL Schuyler # (Auto) (0.11-0.59) K/uL Eos # (Auto) (0-0.5) K/uL Baso # (Auto) (0-0.2) K/uL PT (9.0-12.0) Seconds INR (0.9-1.1) APTT (21.0-31.0) Seconds PTT Ratio Sodium (136-145) mmol/L Potassium (3.5-5.1) mmol/L Chloride (98-107) mmol/L Carbon Dioxide (21-32) mmol/L Anion Gap (3-11) BUN (7-18) mg/dl Creatinine (0.6-1.2) mg/dl Est Cr Clr Drug Dosing Est GFR ( Amer) Est GFR (Non-Af Amer) BUN/Creatinine Ratio (10-20) Glucose (70-99) mg/dl Calcium (8.5-10.1) mg/dl Urine Color Yellow Urine Appearance Cloudy H (Clear) Urine pH 5.5 (4.5-7.5) Ur Specific [place] 1.026 (1.000-1.030) Urine Protein Negative (Negative) Urine Glucose (UA) Negative (Negative) Urine Ketones 1+ H (Negative) Urine Blood Negative (Negative) Urine Nitrite Positive H (Negative) Urine Bilirubin Negative (Negative) Urine Urobilinogen Negative (Negative) Ur Leukocyte Esterase Trace H (Negative) Urine WBC (Auto) 10-30 H (0-5) /hpf Urine RBC (Auto) 0-4 (0-4) /hpf U Hyaline Cast (Auto) 1-5 (0-5) /lpf U Epithel Cells (Auto) 10-20 H (0-5) /lpf Urine Bacteria (Auto) 4+ H (Negative) Urine Yeast Not Reportable Blood Type Cancelled O Positive Antibody Screen Cancelled NEGATIVE Imaging Data My Impression: X ray results are stated below per my interpretation: CXR 1V Chronic changes, old sternotomy, no evidence of PNA, congestion, or PTX. PELVIS 1V Compared to previous study. Old pelvis ring fracture along with new left intertrochanteric femur fracture. No dislocation. FEMUR 2V Left knee replacement, left femur fracture, no dislocation Radiologist's Impression: Radiology results as stated below per my review and the radiologist's interpretation: CT PELVIS: Acute appearing comminuted, displaced intertrochanteric fracture of the left femur with varus angulation of the left femur. No hip dislocation. Old insufficiency fractures of bilateral sacral ala. Subacute fractures of the left superior and inferior pubic rami. Osteopenia. Ceron catheter in a decompressed bladder. Vaginal pessary. Moderate stool in the rectum. Diverticulosis. Atherosclerotic changes of the vasculature. 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 Injection granulomas in the gluteal soft tissues. Radiologist: Mila Bergeron M.D. Study ready at 02:46 and initial results transmitted at 03:15 ECG Data Attestation: I personally reviewed and interpreted this ECG as follows: Indication: other (Fall) Rate (beats per minute): 81 Rhythm: sinus rhythm Findings: + PVC and + RBBB (Incomplete); no ST depression and no ST elevation Blood Pressure Blood Pressure Findings: Elevated blood pressure Blood Pressure Disposition: further management by hospitalist MDM Narrative This is a 88-year-old female who presents emergency department complaining of left hip pain. The patient patient x-rays performed which showed a intertrochanteric fracture. I will note that the patient has a known pelvic ring fracture and her x-rays were reviewed from February. I did discuss the patient's case with her son as the patient has dementia and I am not sure she realizes the extent of her injury. I expressed that I am not sure the patient is a good candidate for surgery and that she may just be comfort measures however family would like to discuss the case with orthopedic surgery in the morning. I did discuss the case with the hospitalist who agreed to admit the patient. I will note that the patient's hemoglobin is higher than it normally is. Impression & Plan Closed intertrochanteric fracture of left femur, Hypertension Discharge Plan Visit Data Chief Complaint: Fall ED Provider: Pedro Schroeder Discharge Problem: Closed intertrochanteric fracture of left femur, Hypertension Patient Disposition: Being Evaluated by Hospitalist Discharge Instructions Interventions: ED Discharge Assessment Last Done: 06/12/18 04:19 Forms Stand Alone Forms: My [facility] Prescriptions Prescriptions: No Action citalopram 10 mg Tablet 10 mg PO DAILY RF: 0 Travatan Z 0.004 % Drops 1 drp OPHTHALMIC (EYE) PM RF: 0 omeprazole 20 mg Capsule,Delayed Release(Dr/Ec) 20 mg PO DAILY RF: 0 lisinopril 5 mg Tablet 5 mg PO DAILY RF: 0 acetaminophen 325 mg Capsule 650 mg PO TID PRN (Reason: Pain) RF: 0 diclofenac sodium [Voltaren] 1 % Gel 2 g TOPICAL QID RF: 0 memantine [Namenda XR] 7 mg Capsule,Sprinkle,Er 24hr 1 cap PO DAILY RF: 0 ergocalciferol (vitamin D2) 50,000 unit capsule 50,000 units PO DAILY Qty: 30 RF: 0 artificial tears(hypromellose) 0.3 % Drops 2 drp ophthalmic (eye) Q2H PRN (Reason: Dry Eyes) RF: 0 calcium carbonate [Calcium 600] 600 mg calcium (1,500 mg) Tablet 600 mg PO TID RF: 0 cholecalciferol (vitamin D3) [Vitamin D3] 2,000 unit Tablet 2,000 unit PO DAILY RF: 0 acetaminophen [Tylenol] 325 mg Tablet 650 mg PO Q6H PRN (Reason: pain/fever) RF: 0 atorvastatin 10 mg Tablet 10 mg PO HS RF: 0 Referrals Referrals: Steven Olmstead at [place] [Primary Care Provider] - The scribe's documentation has been prepared under my direction and personally reviewed by me in its entirety. I confirm that the note above accurately reflects all work, treatment, procedures, and medical decision making performed by me.
[2018-06-12] MEDS ORDERED: ACETAMINOPHEN 1,000 MG/100 ML VIAL IV PRN (04:36)
[2018-06-12] MEDS ORDERED: ARTIFICIAL TEARS OP PRN ×2 (05:00→19:22)
[2018-06-12] MEDS: cefTRIAXone SODIUM 1,000 MG in DEXTROSE 5% 50 ML IV SCH (05:30)
--- NOTE | 2018-06-12 07:07 | XRay Report ---
SINGLE VIEW CHEST CLINICAL HISTORY: Fall. FINDINGS: An AP, portable, upright chest radiograph is compared to study dated 02/27/2018 and correla miguel a with chest CT dated 05/07/2015. The examination is degraded by portable technique and patient rota tion. The patient is status post midline sternotomy. The heart is enlarged and there is atherosclero tic calcification of the thoracic aorta. The pulmonary vasculature is noncongested. A large hiatal he rnia is noted. Chronic interstitial thickening is similar to previous. There is bibasilar atelectasis . Trace left pleural effusion is suspected. No pneumothorax is seen. The skeletal structures are oste openic. Advanced arthritic change and deformity is seen in the shoulders. There are acute to subacute left lower rib fractures, new from 02/27/2018. Advanced degenerative change and scoliosis are noted in the thoracic spine. IMPRESSION: 1. Cardiomegaly without radiographic evidence of congestive failure. 2. There are acute to subacute left lower rib fractures, new from 02/27/2018. 3. There is a small left pleural effusion. 4. Large hiatal hernia. Electronically signed by: Matt Hinojosa M.D. 06/12/2018 7:06 AM
--- NOTE | 2018-06-12 07:10 | XRay Report ---
SINGLE VIEW PELVIS; 2 VIEWS LEFT FEMUR CLINICAL HISTORY: Fall with left hip injury. FINDINGS: An AP view of the pelvis with AP and crosstable lateral views of the left hip are obtained. Comparison is made to pelvic x-ray dated 04/11/2018. The skeletal structures are osteopenic. There are chronic left pubic ring fractures. No acute fracture is seen involving the bony pelvis and right hip . There is a comminuted intertrochanteric fracture of the left femur with medial distraction of the l zofia trochanter, and proximal migration of the femoral shaft. Overlying soft tissue edema is noted. The distal femur appears intact. A left knee arthroplasty is in place. Advanced lumbosacral spondylos is and scoliosis is partially visualized. Moderate arthritic change and joint space narrowing is seen in the hips. Degenerative sclerosis is noted in the sacroiliac joints and symphysis pubis. There is advanced atherosclerotic calcification of the femoral arteries. Rectosigmoid fecal impaction is obser adele. IMPRESSION: 1. Comminuted and distracted intertrochanteric fracture of the left femur as above. 2. No additional acute fracture is identified. 3. There are chronic left pubic ring fractures. Electronically signed by: Matt Hinojosa M.D. 06/12/2018 7:09 AM
--- NOTE | 2018-06-12 07:29 | CT Scan Report ---
CT pelvis wo con CLINICAL HISTORY: 88 years-old Female presenting with Pt c/o hip fracture, left hip and pelvic pain. TECHNIQUE: Multidetector CT of the pelvis was performed without the use of intravenous contrast. 3-D volumetric and/or maximum intensity projection (MIP) images were subsequently reconstructed for revie w. IV contrast: None. One or more dose lowering techniques were used consistent with the principles o f ALARA (as low as reasonably achievable), including automatic exposure control, mA or kV adjustment to individual patient size, and/or use of iterative reconstruction. COMPARISON: 05/07/2015 and plain radiograph from 06/12/2018. CT DOSE (mGy.cm): The estimated cumulative dose is 410.09 mGy.cm. FINDINGS: [place] topogram: Displaced and angulated intertrochanteric fracture of the left femur. Displaced and comminuted fracture of the intertrochanteric region of the left femur. The inferior med ial femoral neck is impacted on the distal fracture fragment, which is displaced one half shaft width medially. Significant varus angulation at the fracture site. The lesser trochanteric fracture fragme nt is displaced medially. Several posterior fracture fragments also noted. There is proximal displace ment of the distal fracture fragment by approximately 3 cm. The left femoral head remains congruent i n the acetabulum. Underlying osteopenia. Subacute to chronic displaced fractures of the left superior and inferior pubic rami. Subacute to chr onic fractures of the bilateral sacral ala. Advanced degenerative changes and scoliosis of the lower lumbar spine. Right hip joint congruent. Right femoral neck intact. A pessary is in place. Moderate stool burden in the rectum with resultant distention. Diverticulosis. A Ceron catheter decompresses the urinary bladder. Extensive atherosclerosis with tortuosity and mil d ectasia of the common iliac arteries. IMPRESSION: 1. Comminuted, displaced, and angulated fracture of the intertrochanteric portion of the left femur. 2. Subacute to chronic insufficiency fractures of the bilateral sacral ala. 3. Subacute to chronic displaced fractures of the left superior and inferior pubic rami. Electronically signed by: Cisco Robles M.D. 06/12/2018 7:27 AM
[2018-06-12] MEDS: LISINOPRIL 5 MG TAB PO SCH (07:38)
--- NOTE | 2018-06-12 08:46 | Orthopedic Consultation ---
Date of Consultation June 12, 2018 Assessment & Plan (1) Closed intertrochanteric fracture of left femur: Dr. Carmona spoke with the patient's son this AM and he feels that his mother would not be able to tolerate the surgery and elects to proceed nonsurgically. Appreciate medicine service to monitor patients other chronic issues Recommend NWB on left lower extremity Transfer from bed to chair as tolerated with assistance. Cont PT/OT Will need placement in longterm facility Supervising Physician Co-Signing Physician Notes I have seen and examined the patient, and formulated the above plan. After dis cussing with patient's son who has power of corporate attorney, we have agreed that nonoperative management is in the patient's best interest. She will not be able to weight bear on her left lower extremity. She can transfer from bed to chair with assistance using her R leg and upper extremities for support but will no longer be able to walk. Follow-up in my office in 2 weeks with AP and cross table lateral hip x-rays. History of Present Illness Reason for Consultation: Left hip fracture Attending Physician: Abel Spangler MD History of Present Illness This 88 yo F was seen in ED early this AM after apparently sliding from her bed causing an injury to her Left hip. Patient was unable move the Left LE and had noticable shortening and internal rotation of the extremity. Patient has numerous other prexhisting medical issues that pose a risk to treating her hip surgically. Due to patients alzheimer's dementia, it was very difficult to obtain a history from the patient, but she does deny CP or SOB. However, in di scussions with her son, she has been doing little, if any, walking prior to the injury, mostly transferring bed to wheelchair. She recently sustained pelvis fractures as well as has a left distal humerus fracture nonunion. Allergies Allergy/AdvReac Type Severity Reaction Status Date / Time celecoxib Allergy Severe SWELLING Verified 06/12/18 01:48 LIPS amoxicillin Allergy Intermediate . Unverified 06/12/18 01:48 clavulanic acid Allergy Intermediate . Unverified 06/12/18 01:48 fexofenadine Allergy Intermediate STIFF Verified 06/12/18 01:48 TONGUE valdecoxib Allergy Mild RASH Verified 06/12/18 01:48 Home Medications Home Medications Medication Instructions Recorded Confirmed Type Travatan Z 1 drp OPHTHALMIC (EYE) PM 02/27/18 06/12/18 History acetaminophen 650 mg PO TID PRN 02/27/18 06/12/18 History citalopram 10 mg PO DAILY 02/27/18 06/12/18 History diclofenac sodium [Voltaren] 2 g TOPICAL QID 02/27/18 06/12/18 History lisinopril 5 mg PO DAILY 02/27/18 06/12/18 History memantine [Namenda XR] 1 cap PO DAILY 02/27/18 06/12/18 History omeprazole 20 mg PO DAILY 02/27/18 06/12/18 History ergocalciferol (vitamin D2) 50,000 units PO DAILY #30 cap 03/04/18 06/12/18 Rx acetaminophen [Tylenol] 650 mg PO Q6H PRN 06/12/18 06/12/18 History artificial tears(hypromellose) 2 drp OPHTHALMIC (EYE) Q2H PRN 06/12/18 06/12/18 History atorvastatin 10 mg PO HS 06/12/18 06/12/18 History calcium carbonate [Calcium 600] 600 mg PO TID 06/12/18 06/12/18 History cholecalciferol (vitamin D3) 2,000 unit PO DAILY 06/12/18 06/12/18 History [Vitamin D3] Patient History Medical History Traumatic hematoma of left elbow DVT prophylaxis Dementia BPPV (benign paroxysmal positional vertigo) Hypertension Fracture of left pelvis (Acute) Afib Cervical strain (Acute) Contusion of left leg (Acute) Facial contusion (Acute) Fall (Acute) GI bleed Head injury (Acute) Surgical History History of heart valve replacement (Chronic) Family History Other Family history non-contributory Social History Preferred Language: [place] Islander Communication Ability: Impaired Beliefs That Will Affect Care: None Current Living Situation: Personal Care Facility Current Living Situation Comment: [facility] current occupational status: retired Other Information That Helps Us Care for You: No Feels Safe at Home: Yes Safety Concerns: Feels Safe At This Time Smoking Status: Never smoker Hx Alcohol Use: No Hx Substance Use: No Review of Systems Constitutional: as per Subjective / HPI Physical Exam Vital Signs (Past 24 Hours): Last Vital Signs Temp 37.2 C 06/12/18 07:49 Pulse 95 H 06/12/18 07:49 Resp 16 06/12/18 07:49 BP 106/64 06/12/18 07:49 Pulse Ox 92 06/12/18 07:49 Physical Exam: Left hip: Able to move toes in Left foot but reports she does not feel light touch to plantar and dorsal surface of toes/foot. Periph pulses palpable. Cap refill slightly less than 2 seconds. Calf soft and supple. Visible shortening and internal rotation of Left LE. Unable to perform SLR. NV intact from ankle proximally. TTP over anterior and lateral aspect of the left hip. Mild edema and ecchymosis noted to lateral surface of distal quad. Results & Data Diagnostic Findings X-rays show a displaced left intertrochanteric fracture, with additional fracture of the lesser trochanter (1) Closed intertrochanteric fracture of left femur Encounter type: initial encounter Fracture alignment: displaced Qualified Code(s): S72.142A - Displaced intertrochanteric fracture of left femur, initial encounter for closed fracture
[2018-06-12] MEDS: PANTOprazole 40 MG TAB PO SCH (09:42)
[2018-06-12] MEDS: CALCIUM 600MG + VIT D 400 IU TAB PO SCH ×3 (09:42→20:50)
[2018-06-12] MEDS: CHOLECALCIFEROL 1,000 UNITS TAB PO SCH (09:42)
[2018-06-12] MEDS: CITALOPRAM 20 MG TAB PO SCH (09:43)
[2018-06-12] MEDS: DICLOFENAC SOD 1% GEL 100 GM TUBE EXT SCH ×4 (09:43→20:50)
--- NOTE | 2018-06-12 11:48 | Medical Student Progress Note ---
Date of Service June 12, 2018 Assessment & Plan (1) Closed intertrochanteric fracture of left femur: Lisa is an 88 WF who with a PMH signifcant for Alzheimer's Dementia, HTN, h/o esophagititis, Aortic Stenosis, s/p biprosthethic AVR, Paroxysmal Afib (currently in sinus tachycadia) who presents Day 1 of admission for a Left hip pain and abdominal pain after falling earlier this morning. pelvic CT displayed an acute comminuted displaced intratrochanteric fracture with varus angulation of the left femur. Orto was consulted. Ortho Consult: Dr. Carmona spoke with the patient's son (her POA) this morning, who vocalized concerned that his mother would not be able to tolerate the surgery and elects to proceed non-surgically. Ortho agreed to f/u up non- surgically. She will need to have an appointment scheduled in 2 wks Recommend Non-weight bearing on left lower extremity Allowed to transfer from bed to chair as tolerated with assistance. Advised to weight bear on RLE and use Upper Extremities to transfer with assistance. Cont PT/OT Will need placement in shelter facility Pain Management: She was given 4mg of Zofran and .25g of Dilaudid in the ER. Current regimen is 1g of IV Tylenol q8h PRN Encounter type: initial encounter Fracture alignment: displaced Qualified Code(s): S72.142A - Displaced intertrochanteric fracture of left femur, initial encounter for closed fracture (2) Hypercholesterolemia: Continue atorvastatin 10mg PO Present on Admission?: Yes (3) Traumatic hematoma of left elbow: Monitor and treat supportively Encounter type: initial encounter Qualified Code(s): S50.02XA - Contusion of left elbow, initial encounter Present on Admission?: Yes (4) DVT prophylaxis: (5) Dementia: Continue citalopram 10mg PO daily Continue Namenda XR 1 cap PO dialy Although I did not see any signs of head trauma and non was documented, because the unspecified nature of the fall, I am concerned if she may have hit her head. I do not know what her cognitive baseline is and do not see any heat CT or prior imaging on file. She was found to have a UTI as well as mildly elevated tropoinin levels at 0.055 (see below for more discussion) Because I have such a limited h/o her cognitive baseline and her current AMS- causing presentaation (denmentia vs UTI associated delerium vs minor ischemic episode) I would order a non conrast head CT Alzheimer's disease onset: unspecified onset Dementia behavioral disturbance: without behavioral disturbance Dementia type: Alzheimer's disease Qualified Code(s): G30.9 - Alzheimer's disease, unspecified; F02.80 - Dementia in other diseases classified elsewhere without behavioral disturbance Present on Admission?: Yes (6) BPPV (benign paroxysmal positional vertigo): Documented hx. She did fall, however there isn't a documented witness to attest to the nature of the fall from her bed to assist with the cause of her fall. She, herself, is a poor historian due to significant cognitive decline. She lays in bed in right lateral decubis, this is likely due to L. Hip fracture and not being able to effectively vocalize her discomfort. However, if the latter is true, perhaps she is also resting with her head to the right out of positional comfort to ease vertigo. This isn't a high probablilty Unable to assess if she is experiencing dizziness, No nystagmus was present on exam and not documented episodes of emesis. Laterality: unspecified laterality Qualified Code(s): H81.10 - Benign paroxysmal vertigo, unspecified ear Present on Admission?: No (7) Hypertension: continue lisinopril 5 mg PO daily Hypertension type: unspecified Qualified Code(s): I10 - Essential (primary) hypertension (8) Afib: (9) UTI (urinary tract infection): UA was positive for nitrites, leuk esterase, WBC and bacteria Urine culture pending, no previous culture available to assess sensitivities She did not endorse any CVAT, however patient unable to tell us if symptomatic 1g IV Rocephin q24h as she has elevated WCC ( may also be attributed in conjunction to her fall and fracture) (10) Acute electrocardiogram changes: Upon ED arrival, she had new T wave inversions in lateral leads, T wave abnormalities in inferior leads EKG was reordered given presence of PVCs on initial reading Troponin level was ordered and levels were 0.055 which indicates myocardiial damage, not quite ischemia in the presence of an acute WA Present on Admission?: Yes (11) Esophagitis: continue omeprazole 20 mg PO daily Present on Admission?: Yes Physical Exam Vital Signs (Past 24 Hours): Last Vital Signs Temp 37.2 C 06/12/18 07:49 Pulse 95 H 06/12/18 07:49 Resp 16 06/12/18 07:49 BP 106/64 06/12/18 07:49 Pulse Ox 92 06/12/18 07:49 Constitutional: well developed, well nourished, + altered mental status (has Alzheimer's Demenetia), + frail appearing and comfortable Pt apperared tired, as if she was in and out of sleep during the exam, was laying in a semi- right lateral decubis position bout 30 degrees with her arms comfortably resting on her abdomen. Her left leg was not fully resting over her right as it appeared to be externally rotated (unsure of degree of rotation) in comparison to positional alignment of her spine), with both of her knees flexed (R to about 60 and L abo ut 70), giving an overall slight leg discrepancy. I was unable to get her to cooperate to lay in a supine position, she appeared to have inconsistent command following. Respiratory: normal respiratory effort, lungs clear to auscultation Cardiovascular: Rate/Rhythm: regular rate, regular rhythm and + tachycardic Heart Sounds: normal, physiologic split S2 Palpation: normal PMI Vessels: normal peripheral pulses, posterior tibial pulses present, dorsalis pedis pulses present and popliteal pulses present Extremities: normal capillary refill Gastrointestinal (Abdomen): Inspection/Auscultation: abdomen normal to inspection Percussion/Palpation: abdomen soft; abdomen nontender, no guarding and abdomen not rigid Musculoskeletal: Head/Neck/Chest: normocephalic Spine: + straight leg raise positive (unable to perform with position, and lack of compliance) Extremities: + leg externally rotated (left), + leg foreshortened (left), + elbo w/forearm abnormality (hematoma is covered in bandage) and + lower extremity abnormal to inspection (LLE appeared sligthly externally rotated and flexed) Skin: no rashes, warm and dry Neurologic: awake and + confused Psychiatric: Orientation: alert and oriented to person; + not oriented to place and + not oriented to time Apperance: appeared stated age Genitourinary: OB Exam Monitor Tracing: + intra-uterine pressure catheter used Results & Data Labs CBC & Chem 7: 06/12/18 01:52 06/12/18 01:52 Labs: Short CBC 06/12/18 Range/Units 01:52 WBC 15.88 H (4.8-10.8) K/uL Hgb 11.7 L (12.0-16.0) g/dL Hct 36.3 L (37-47) % Plt Count 181 (130-400) K/uL BMP 06/12/18 01:52 Sodium 141 Potassium 4.2 Chloride 106 Carbon Dioxide 25 BUN 27 H Creatinine 0.83 Glucose 137 H Calcium 8.9 Cardiac Enzymes 06/12/18 Range/Units 05:21 Troponin I 0.033 (0-0.045) ng/ml Urine 06/12/18 Range/Units 02:00 Urine Color Yellow Urine Appearance Cloudy H (Clear) Urine pH 5.5 (4.5-7.5) Ur Specific [place] 1.026 (1.000-1.030) Urine Protein Negative (Negative) Urine Glucose (UA) Negative (Negative)
[2018-06-12] MEDS: D5W AND 1/2NSS + 20MEQ KCL 20 MEQ/1,000 ML BAG IV SCH (16:04)
[2018-06-12] MEDS ORDERED: ENOXAPARIN INJ 30 MG/0.3 ML SYR SQ SCH (18:00)
[2018-06-12] MEDS ORDERED: TRAVOPROST Z 0.004% OPH SOLN 2.5 ML BTL OPB SCH (21:00)
[2018-06-12] MEDS ORDERED: ATORVASTATIN 10 MG TAB PO SCH (21:00)
--- NOTE | 2018-06-12 23:38 | Hospitalist Progress Note ---
Date of Service June 12, 2018 Assessment & Plan (1) Closed intertrochanteric fracture of left femur: Ms. Gambino is a 88 year old female with a history of Alzheimer's dementia, hypertension, hyperlipidemia, hx of esophagitis, aortic stenosis s/p bioprosthetic AVR and Paroxysmal Afib who presents to the ED after a fall that resulted in a left hip fracture. -CT pelvis showed acute comminuted, displaced intertrochanteric fracture of the left femur with varus angulation -orthopedics consult appreciated-plan for nonoperative management -She can do bed to chair transfers as per Ortho, nonweightbearing on left lower extremity -PT/OT consult -Convert IV Tylenol p.o. for pain -IV Dilaudid as needed -We will transfer back to nursing facility when pain controlled (2) Dementia: Moderate-severe -continue memantine and citalopram (3) Hypertension: HTN controlled to low blood pressures -continue lisinopril (4) UTI (urinary tract infection): -UA positive for nitrites, leuk esterase, WBC and bacteria -urine culture with gram-negative rods -patient unable to tell us if symptomatic -will treat given pt also has leukocytosis and may be related to pt's fall - continue 1g IV Rocephin q24h and convert to p.o. for total 3-day course (5) Afib: History of lone A. fib -appears to have only been one episode in Apr 2015 and she has not been in afib since -currently in sinus rhythm here -No anticoagulation needed (6) Hypercholesterolemia: -continue atorvastatin (7) Esophagitis: Continue PPI (8) History of heart valve replacement: Stable -Check an echocardiogram (9) Elevated troponin: EKG Changes -pt has new T wave inversions in lateral leads, T wave abnormalities in inferior leads -Repeat ECG similar -Troponin mildly elevated likely myocardial demand ischemia in setting of fall and hip fracture -Echocardiogram ordered -Discussed with family, no aggressive treatment -She has a history of severe epistaxis with aspirin-we will hold off on this -Follow clinically (10) DVT prophylaxis: Lovenox 30 mg SQ every 24 hours ordered can continue for 3 weeks Disposition-back to senior living in 1-2 days when pain controlled and tolerating p.o. Discussed care with family Changed to DNR today Discussed that if her condition declines which it very well may, she should transition to hospice and family in agreement with this Subjective The first time I saw the patient, she was very drowsy and would not wake up to answer questions. The second time I saw her with her family, she was awake and alert but not oriented. She denied any problems. Family confirms that they do not want surgery and her living will was reviewed from senior living records and reviewed with the 2 sons at the bedside who are in agreement to make her DNR. They are okay with Lovenox for DVT prophylaxis. She is eating a little bit. They report on a usual basis, her appetite waxes and wanes. Family reports she was on aspirin in the past and had severe epistaxis and it was therefore stopped. Review of Systems All systems reviewed & are unremarkable except as noted in HPI & below Physical Exam Vital Signs (Past 24 Hours): Last Vital Signs Temp 36.3 C L 06/12/18 23:00 Pulse 75 06/12/18 23:00 Resp 19 06/12/18 23:00 BP 95/58 L 06/12/18 23:00 Pulse Ox 93 06/12/18 23:00 Constitutional: + thin; no acute distress Eyes: PERRL, conjunctivae normal, anicteric sclerae ENMT: external ear and nose normal, oropharynx normal Neck: trachea midline, no thyromegaly Respiratory: normal respiratory effort, lungs clear to auscultation Cardiovascular: RRR, no murmur, no edema Extremities: no edema Gastrointestinal (Abdomen): normal bowel sounds, soft, nontender, no hepatosplenomegaly Musculoskeletal: Extremities: + extremities abnormal to inspection (Left lower extremity shortened and externally rotated, no significant edema over the left hip), no cyanosis and no clubbing Skin: no rashes, warm and dry Neurologic: moves all extremities and awake; no focal motor deficits Psychiatric: Orientation: alert; + not oriented x 3 Affect: euthymic affect Cognition: + recent memory not intact and + remote memory not intact Insight: + impaired insight Results & Data Laboratory Results 06/12/18 06/12/18 Range/Units 17:58 11:58 Troponin I 0.067 H* 0.055 H* (0-0.045) ng/ml ECG Additional Comments: ECG with diffuse T wave inversions inferolateral (1) Dementia Alzheimer's disease onset: unspecified onset Dementia behavioral disturbance: without behavioral disturbance Dementia type: Alzheimer's disease Qualified Code(s): G30.9 - Alzheimer's disease, unspecified; F02.80 - Dementia in other diseases classified elsewhere without behavioral disturbance (2) Hypertension Hypertension type: unspecified Qualified Code(s): I10 - Essential (primary) hypertension (3) Closed intertrochanteric fracture of left femur Encounter type: initial encounter Fracture alignment: displaced Qualified Code(s): S72.142A - Displaced intertrochanteric fracture of left femur, initial encounter for closed fracture
[2018-06-13] MEDS: D5W AND 1/2NSS + 20MEQ KCL 20 MEQ/1,000 ML BAG IV SCH (05:15)
[2018-06-13] MEDS: cefTRIAXone SODIUM 1,000 MG in DEXTROSE 5% 50 ML IV SCH (05:15)
[2018-06-13] MEDS ORDERED: ACETAMINOPHEN 500 MG TAB PO PRN (07:51)
[2018-06-13] MEDS: CALCIUM 600MG + VIT D 400 IU TAB PO SCH ×2 (08:05→13:50)
[2018-06-13] MEDS: CHOLECALCIFEROL 1,000 UNITS TAB PO SCH (08:05)
[2018-06-13] MEDS: PANTOprazole 40 MG TAB PO SCH (08:05)
[2018-06-13] MEDS: CITALOPRAM 20 MG TAB PO SCH (08:05)
[2018-06-13] MEDS: LISINOPRIL 5 MG TAB PO SCH (08:05)
[2018-06-13] MEDS: DICLOFENAC SOD 1% GEL 100 GM TUBE EXT SCH ×3 (08:06→16:13)
--- NOTE | 2018-06-13 08:50 | Medical Student Progress Note ---
Date of Service June 13, 2018 Assessment & Plan (1) Closed intertrochanteric fracture of left femur: Ms. Gambino is a 88 y/o WF with a h/o of Alzheimer's dementia, hypertension, hyperlipidemia, esophagitis, aortic stenosis s/p bioprosthetic AVR and Paroxysmal Afib who presents day 2 of admission after a fall that resulted in a left hip fracture. CT pelvis showed acute comminuted, displaced intertrochanteric fracture of the left femur with varus angulation orthopedics consult appreciated-plan for nonoperative management She can do bed to chair transfers as per Ortho, nonweightbearing on left lower extremity PT/OT consulted 06/12/18 - services no longer needed as she is unable to ambulate/ Convert IV Tylenol p.o. for pain IV Dilaudid changed to Toradol as needed in outpt Voltaran gel was well tolerated, cont in oupt setting Disposition:We will transfer back to nursing facility as she is stable, afebrile, pain is controlled Son, whom is the POA, agreed. Son desires to follow through with a palliative approach, she has been switched to DNR yesterday. Discussed that if her condi tion declines which it very well may, she should transition to hospice and family in agreement with this. A living will is in place in the instance of any unfortunate events in the future. Care coordination contacted Aysha dunn, who is compliant with d/c plan and has a bedroom reserved for her. f/u with Ortho ([facility]) in 2 weeks Encounter type: initial encounter Fracture alignment: displaced Qualified Code(s): S72.142A - Displaced intertrochanteric fracture of left femur, initial encounter for closed fracture (2) Dementia: Moderate-severe Alzheimer's She has had oscillating degrees of mentation from able to coherently respond to marginal capability to communicate effectively. continue memantine and citalopram outpt Alzheimer's disease onset: unspecified onset Dementia behavioral disturbance: without behavioral disturbance Dementia type: Alzheimer's disease Qualified Code(s): G30.9 - Alzheimer's disease, unspecified; F02.80 - Dementia in other diseases classified elsewhere without behavioral disturbance (3) Hypertension: HTN controlled to low blood pressures continue lisinopril outpt Hypertension type: unspecified Qualified Code(s): I10 - Essential (primary) hypertension (4) UTI (urinary tract infection): UA positive for nitrites, leuk esterase, WBC and bacteria Urine cultures were positive for E. coli Awaiting sensitivity patient still unable to tell us if symptomatic will treat given pt also has leukocytosis and may be related to pt's fall Day 2 of 3 for 1g IV Rocephin q24h, however considering d/c. convert to p.o. to complete 3 day course- awaiting sensitivities to assist in rx selection may need to adjust renally. (5) Afib: Upon further chart resaerch, she has had two episodes of A-fib: 2006 after her AVR and in 2015. currently in sinus rhythm here No anticoagulation needed (6) Hypercholesterolemia: Well controlled, continue atorvastatin (7) Esophagitis: Continue PPI (8) History of heart valve replacement: Stable Check an echocardiogram Awaiting the interpretation of the completed exam. She has an appreciable 2/6 systoloic murmur at her RSB. Unlikely to change course of management as she has difficulty tolerating aspirin, per hx from son, and they have agre (9) Elevated troponin: EKG Changes- pt had new T wave inversions in lateral leads, T wave abn ormalities in inferior leads Repeat was ECG similar Troponin mildly elevated likely myocardial demand ischemia in setting of fall and hip fracture. Echocardiogram ordered (see above) Discussed with family, no aggressive treatment Son requested no aspirin use as he states that she has adverse reactions to them She has a history of severe epistaxis with aspirin-we will hold off on this Follow clinically (10) DVT prophylaxis: Lovenox 30 mg SQ q24h 1st dosage received today can continue for 2-3 weeks Subjective No acute overnight events Remained afebrile and in NSR She has remained in bed Minimal PO input, reported that she needs heavy encouragement to feed at baseline Poor Urine Output in setting of IVF [Mentation is not the best and subjective insight is limited] Refuses blood to be drawn for labs Denies any abd pain Thinks "she bumped her hip and that there is some pain" Physical Exam Vital Signs (Past 24 Hours): Last Vital Signs Temp 37.2 C 06/13/18 08:18 Pulse 72 06/13/18 08:18 Resp 18 06/13/18 08:18 BP 104/65 06/13/18 08:18 Pulse Ox 92 06/13/18 08:18 Constitutional: well developed, well nourished, + altered mental status (has Alzheimer's Demenetia), + frail appearing and comfortable Respiratory: normal respiratory effort, lungs clear to auscultation Cardiovascular: Rate/Rhythm: regular rate and regular rhythm Heart Sounds: + murmur (audible 2/6 systolic murmur appreciated at RSB) Palpation: normal PMI Vessels: normal peripheral pulses, posterior tibial pulses present, dorsalis pedis pulses present, radial pulses present and popliteal pulses present Extremities: normal capillary refill Gastrointestinal (Abdomen): Inspection/Auscultation: abdomen normal to inspection Percussion/Palpation: abdomen soft; abdomen nontender, no guarding and abdomen not rigid Musculoskeletal: Head/Neck/Chest: normocephalic Extremities: + leg externally rotated (left), + leg foreshortened (left), + elbow/forearm abnormality (hematoma is covered in bandage) and + lower extremity abnormal to inspection (LLE appeared sligthly externally rotated and flexed) Hip: + limited ROM of hip and + joint line tenderness Knee: + surgical incision (Left knee) Skin: + ecchymosis (LLE) Neurologic: awake and + confused Psychiatric: Orientation: alert and oriented to person; + not oriented to place and + not oriented to time Apperance: appeared stated age Genitourinary: OB Exam Monitor Tracing: + intra-uterine pressure catheter used
--- NOTE | 2018-06-13 12:49 | Discharge Summary ---
Date of Service June 13, 2018 Admission HPI Per Admitting Provider Ms. Gambino is a 88 year old female with a history of Alzheimer's dementia, hypertension, hx of esophagitis, aortic stenosis s/p bioprosthetic AVR and Paroxysmal Afib who presents to the ED after a fall that occurred earlier today. History is limited secondary to patient's dementia, however upon review of the notes from [facility], the patient was found to be sliding off her bed. She subsequently complained of pain in her left hip and left leg and would not raise her left leg. An x-ray was obtained and showed a fracture in her left femur. Of note, the patient was recently discharged from [facility] on 03/04/2018 after having sustained a pelvic fracture after a fall. The patient denies any pain at the time of my examination. She had just received 0.25mg of IV Dilaudid and subsequently dropped her oxygen saturations to 89%. She was placed on 2L of oxygen via nasal cannula and is now saturating at 100%. Principal Diagnosis Left hip fracture, fall, UTI Discharge Exam Constitutional + thin; no acute distress Eyes PERRL, conjunctivae normal, anicteric sclerae ENMT external ear and nose normal, oropharynx normal Neck trachea midline, no thyromegaly Respiratory normal respiratory effort, lungs clear to auscultation Cardiovascular Rate/Rhythm: regular rate and regular rhythm Heart Sounds: + murmur (2/6 KIN at RUSB) Extremities: no edema Gastrointestinal (Abdomen) normal bowel sounds, soft, nontender, no hepatosplenomegaly Musculoskeletal Extremities: + extremities abnormal to inspection (Left lower extremity shortened and externally rotated, no significant edema over the left hip), no cyanosis and no clubbing Skin no rashes, warm and dry Neurologic moves all extremities and awake; no focal motor deficits Psychiatric Orientation: alert; + not oriented x 3 Affect: euthymic affect Cognition: + recent memory not intact and + remote memory not intact Insight: + impaired insight Genitourinary Ceron catheter in place with dark yellow urine Discharge Data Allergies Allergy/AdvReac Type Severity Reaction Status Date / Time celecoxib Allergy Severe SWELLING Verified 06/12/18 01:48 LIPS amoxicillin Allergy Intermediate . Unverified 06/12/18 01:48 clavulanic acid Allergy Intermediate . Unverified 06/12/18 01:48 fexofenadine Allergy Intermediate STIFF Verified 06/12/18 01:48 TONGUE valdecoxib Allergy Mild RASH Verified 06/12/18 01:48 Consultations Orthopedic Surgery Procedures Performed ECHO Ordered Studies 06/12/18 02:27 CT pelvis wo con Urgent CXR Left femur xray Pelvis xray Hospital Course (1) Closed intertrochanteric fracture of left femur: Ms. Gambino is a 88 year old female with a history of Alzheimer's dementia, hypertension, hyperlipidemia, hx of esophagitis, aortic stenosis s/p bioprosthetic AVR and Paroxysmal Afib who presents to the ED after a fall that resulted in a left hip fracture. -CT pelvis showed acute comminuted, displaced intertrochanteric fracture of the left femur with varus angulation -orthopedics consult appreciated-plan for nonoperative management -She can do bed to chair transfers as per Ortho, nonweightbearing on left lower extremity -Cont Tylenol p.o. for pain -We will transfer back to nursing facility -keep Ceron in place for comfort for now -if further declines, should transition to Hospice which was discussed with the family given her severe dementia (2) Dementia: Moderate-severe -continue memantine and citalopram for mood (3) Hypertension: HTN controlled to low blood pressures -continue lisinopril (4) UTI (urinary tract infection): -UA positive for nitrites, leuk esterase, WBC and bacteria -urine culture withE. coli, sensitivity pending at time of discharge -patient unable to tell us if symptomatic -will treat given pt also has leukocytosis and may be related to pt's fall - received 2 doses of 1g IV Rocephin q24h and convert to p.o. keflex x 1 more day (5) Afib: History of A. fib post-op from AVR in 2007 and again after perforated viscous and pneumoperitoneum in 2016, none since -currently in sinus rhythm here -No anticoagulation needed (6) Hypercholesterolemia: -continue atorvastatin (7) Esophagitis: Continue PPI (8) History of heart valve replacement: Stable (9) Elevated troponin: EKG Changes -pt has new T wave inversions in lateral leads, T wave abnormalities in inferior leads, no chest pain -Repeat ECG similar -Troponin mildly elevated likely myocardial demand ischemia in setting of fall and hip fracture -Echocardiogram ordered but not read yet at time of discharge--> will not network management specialist at this point given overall poor prognosis -Discussed with family, no aggressive treatment -She has a history of severe epistaxis with aspirin as well as perforated stomach with hiatal hernia--> PUD? No aspirin will be started -Follow clinically (10) Vaginal pessary in situ: She is overdue for her changeout of this with REFERRAL AND INFORMATION AIDE--> may want to defer until less painful for positioning required due to hip fracture (11) DVT prophylaxis: Lovenox 30 mg SQ every 24 hours ordered can continue for 3 weeks Disposition-back to halfway today Discussed care with family and son Ed specifically on day of discharge DNR Discussed that if her condition declines which it very well may, she should transition to hospice and family in agreement with this Total Time Total Time Spent Total Time Spent (In Minutes): >30 min Total Time Includes: Examination of the Patient, Discharge Planning and Medication Reconciliation Discharge Plan Discharge Items Patient Disposition: Transfer Nursing Home Fac Reason For Visit: LEFT FEMUR FRACTURE, UTI Discharge Diagnosis: Left hip fracture, UTI Condition: Fair Discharge Goals: Decrease discomfort, Diagnostic testing, Improve disease control and Learn about illness Activity: As commented below Activity Comment: Bed to chair transfers only, Non weight bearing LLE Lifting: None Bathing: No limitations Weightbearing: Left non-weightbearing Non-emergency contact: Primary Care Provider and Surgeon Call non-emergency contact if: you have any medication questions, your symptoms worsen, your pain is not controlled, your pain is worsening, your pain is unusual for you, your pain is concerning for you and your temperature is above 101 Follow-up/Referrals: Steven Olm[facility] [Primary Care Provider] - Cisco Carmona MD [Physician] - (In 2 weeks) Diet: Heart Healthy Diet Comment: Minced and moist Addtl Provider Instructions: Presented with fall and left hip fracture-nonoperative management preferred by family after discussion with Ortho. Pain control with tylenol scheduled. Non weight bearing of Left lower extremity and can do bed to chair transfers with assistance as tolerated. Follow up with Ortho in 2 weeks for xrays. UTI being treated with one more day of Keflex. Had myocardial demand ischemia, but no NSTEMI. If starts to decline, family is open to Hospice referral. Prescriptions: New enoxaparin [Lovenox] 30 mg/0.3 mL Syringe 30 mg subcut Q24H 20 Days Qty: 6 RF: 0 acetaminophen [Pain Reliever] 500 mg Tablet 1,000 mg PO Q8 Qty: 180 RF: 0 cephalexin [Keflex] 250 mg capsule 250 mg PO Q6H 1 Days Qty: 4 RF: 0 Continued citalopram 10 mg Tablet 10 mg PO DAILY RF: 0 Travatan Z 0.004 % Drops 1 drp OPHTHALMIC (EYE) PM RF: 0 omeprazole 20 mg Capsule,Delayed Release(Dr/Ec) 20 mg PO DAILY RF: 0 lisinopril 5 mg Tablet 5 mg PO DAILY RF: 0 diclofenac sodium [Voltaren] 1 % Gel 2 g TOPICAL QID RF: 0 memantine [Namenda XR] 7 mg Capsule,Sprinkle,Er 24hr 1 cap PO DAILY RF: 0 artificial tears(hypromellose) 0.3 % Drops 2 drp ophthalmic (eye) Q2H PRN (Reason: Dry Eyes) RF: 0 calcium carbonate [Calcium 600] 600 mg calcium (1,500 mg) Tablet 600 mg PO TID RF: 0 cholecalciferol (vitamin D3) [Vitamin D3] 2,000 unit Tablet 2,000 unit PO DAILY RF: 0 atorvastatin 10 mg Tablet 10 mg PO HS RF: 0 Changed ergocalciferol (vitamin D2) 50,000 unit capsule 50,000 units PO CQWK Qty: 30 RF: 0 Discontinued acetaminophen 325 mg Capsule 650 mg PO TID PRN (Reason: Pain) RF: 0 acetaminophen [Tylenol] 325 mg Tablet 650 mg PO Q6H PRN (Reason: pain/fever) RF: 0 Stand-Alone Forms: [facility] Discharge Orders: Discharge Order (Routine); Ordered 06/13/18 Ordered By: Anushka Burgos Skilled Items Patient informed of condition?: Yes DNR: Yes Discharge Level of Care: Skilled Communicable Disease: No Discharge Prognosis: Stable Admission Data Admit Date/Time: 06/12/18 03:52 Attending Provider: Anushka Burgos Admit Provider: Umesh Zuñiga Primary Care Provider: Steven Olm[facility] Other Providers: Abel Spangler ; Adarsh Bauer ; Bin Carbajal ; Mickey Steiner ; Rober Case ; Jim Garcia ; Hilary Stevens ; Yash Davies ; Lora Witt ; Devon Oconnell ; Marie Negrete ; Bridget Richard ; Juanita Krishnamurthy ; Jesus Perez ; Rober Case ; James Bermudez ; Cisco Rankin ; Cisco Carmona ; Isabel Terry ; Charlene Worley ; Maddie Perez Service: Surgical Services Other Pending Studies at Discharge: No
[2018-06-16] MEDS ORDERED: ERGOCALCIFEROL 50,000 UNITS CAP PO SCH (09:00)
== END 2018-06-13 16:42 | DRG 542 ==
LOC: ED 01:22 → SUATTDRO 03:52 → 3N 03:52
DX: K20.9 Esophagitis, unspecified; M80.052A Age-related osteoporosis with current pathological fracture, left femur, initial encounter for fracture; Z86.79 Personal history of other diseases of the circulatory system; Z88.0 Allergy status to penicillin; Z95.2 Presence of prosthetic heart valve; I21.A1 Myocardial infarction type 2; Y99.8 Other external cause status; I07.1 Rheumatic tricuspid insufficiency; I10 Essential (primary) hypertension; Y92.122 Bedroom in nursing home as the place of occurrence of the external cause; Z96.89 Presence of other specified functional implants; Z79.899 Other long term (current) drug therapy; Z88.8 Allergy status to other drugs, medicaments and biological substances; G30.9 Alzheimer's disease, unspecified; Z66 Do not resuscitate; N39.0 Urinary tract infection, site not specified; B96.20 Unspecified Escherichia coli [E. coli] as the cause of diseases classified elsewhere; W06.XXXA Fall from bed, initial encounter; F02.80 Dementia in other diseases classified elsewhere, unspecified severity, without behavioral disturbance, psychotic disturbance, mood disturbance, and anxiety; E78.00 Pure hypercholesterolemia, unspecified; Z88.6 Allergy status to analgesic agent